=== PATIENT | male | born 1945 | race Caucasian/White ===

== ENCOUNTER → 2020-02-16 12:03 | Outpatient (CLI) | payer MEDICARE, OTHER, SELFPAY ==
[2020-02-16 11:27] VITALS: BMI 30.4
--- NOTE | 2020-02-16 12:35 | RAD_ITS ---
STUDY: X-RAY CHEST REASON FOR EXAM: Male, 74 years old. HEMOPTYSIS IN THE MORNINGS TECHNIQUE: PA and lateral views of the chest. COMPARISON: None. FINDINGS: Alveolar opacity in the lower left lung consistent with left lower lobe pneumonia. Follow-up is recommended to document resolution to exclude a mass. There is no demonstrated pleural abnormality. Normal size heart. Normal mediastinum and zion. Normal visualized pulmonary arteries. Normal visualized aortic arch and descending thoracic aorta. Normal visualized thoracic spine. Normal visualized ribs, clavicles, and shoulders. There is no demonstrated abnormality of the visualized soft tissue structures of the upper abdomen. RAD/Chest PA and Lateral IMPRESSION: Left lower lobe pneumonia. Follow-up is recommended to document resolution. Electronically Signed: Temo Arreaga MD at 13:22 EDT Tel , Service support ,
--- NOTE | 2020-02-16 12:35 | EKG12_ITS ---
Test Reason : Blood Pressure : / mmHG Vent. Rate : 055 BPM Atrial Rate : 055 BPM P-R Int : 134 ms QRS Dur : 106 ms QT Int : 446 ms P-R-T Axes : 015 -06 080 degrees QTc Int : 426 ms Sinus bradycardia with occasional Premature ventricular complexes Left ventricular hypertrophy ST/T Wave abnormality: consider LVH repolarization; myocardial ischemia Abnormal ECG Confirmed by VIOLA YEUNG, TONY ([id number]), make up editor JENSEN CARRILLO ([id number]) on 02/17/2020 1:06:29 PM Referred By: Ronald Shine Confirmed By:TONY ROD MD
[2020-02-16 15:15] LABS: Hematocrit 37.6 % (40-54); Hemoglobin 11.1 g/dL (13.0-16.5); Mean Corp Hgb Conc 29.5 g/dL (32-36); Mean Corpuscular Hgb 26.6 pg (27.0-32.0); Mean Platelet Vol. 9.3 fl (6.2-12.0); Platelet Count 278 K/mm3 (150-450); RBC Distribution Width CV 13.3 % (11.6-14.6); Red Blood Count 4.18 M/mm3 (4.6-6.2); White Blood Count 6.5 K/mm3 (4.4-11.0)
[2020-02-16 15:50] LABS: ALB/GLOB Ratio 0.8 RATIO (0.9-2.4); AST(SGOT) 42 U/L (15-37); Alanine Aminotransfer ALT/SGPT 50 U/L (16-61); Albumin, Serum 3.3 g/dL (3.2-5.0); Alkaline Phosphatase 95 U/L (45-117); Anion Gap 5 (5-15); BUN 25 mg/dL (7-18); BUN/Creat Ratio 16.7 RATIO (10-20); Calcium,Total 8.7 mg/dL (8.5-10.1); Chloride 107 mmol/L (98-107); EST Glomerular Filtration Rate 48 mL/min (>60); Est Glom Filt Rate - Afr Amer 59 mL/min (>60); Globulin 4.3 g/dL (2.2-4.2); Glucose 79 mg/dL (74-106); Potassium 4.4 mmol/L (3.5-5.1); Protein, Total 7.6 g/dL (6.4-8.2); Sodium Level 139 mmol/L (136-145)
== END ==
PROVIDERS: PCP Family Medicine; Referring Provider Family Medicine; Visit Provider Family Medicine
DX: R04.2 Hemoptysis (principal); I10 Essential (primary) hypertension; I49.9 Cardiac arrhythmia, unspecified
CPT/HCPCS: 36415; 71046; 80053; 85027; 93005

== ENCOUNTER 2021-01-06 17:10 | Observation (INO) | payer MEDICARE, OTHER, SELFPAY ==
[2020-02-16 11:27] VITALS: BMI 30.4
[2021-01-06] VITALS (7 sets, daily range): BP systolic 176–225; BP diastolic 52–127; PULSE 62–79; RESP 16–18; TEMP 36.6; O2SAT 96–100; BMI 25.2; BMI 25.6
--- NOTE | 2021-01-06 17:22 | CT_ITS ---
STUDY: CT BRAIN WITHOUT CONTRAST REASON FOR EXAM: Male, 75 years old. trauma RADIATION DOSAGE (If Supplied By Facility): CTDIvol = ( 44.99 ) mGy, DLP = ( 796.11 ) mGycm TECHNIQUE: Transaxial CT imaging of the brain was performed without administration of intravenous contrast material. Individualized dose optimization techniques were used for this CT. COMPARISON: No relevant priors. FINDINGS: Normal soft tissue structures. Normal calvarium. There is moderate cerebral atrophy with widening of the extra-axial spaces and ventricular dilatation. There are areas of decreased attenuation within the white matter tracts of the supratentorial brain, consistent with microvascular disease changes. Remote lacunar infarct left caudate head. 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 Normal brainstem. Normal cerebellum. Intracranial atherosclerosis. There is no intracranial hemorrhage. There are no findings of an acute ischemic infarction. Normal visualized paranasal sinuses. CT/Brain/Head without Contrast IMPRESSION: No acute disease. Incidental findings as above including possible arachnoid cyst posterior fossa. Follow-up MRI may be helpful if clinically warranted. Electronically Signed: Reinaldo Mcclendon MD at 18:31 EDT , Service support ,
--- NOTE | 2021-01-06 17:22 | EKG12_ITS ---
Test Reason : STROKE LIKE Blood Pressure : / mmHG Vent. Rate : 075 BPM Atrial Rate : 075 BPM P-R Int : 140 ms QRS Dur : 110 ms QT Int : 370 ms P-R-T Axes : 006 -06 227 degrees QTc Int : 413 ms Normal sinus rhythm Incomplete right bundle branch block Minimal voltage criteria for LVH, may be normal variant Nonspecific T wave abnormality Abnormal ECG Confirmed by VIOLA YEUNG, TONY ([id number]), avid editor JENSEN CARRILLO ([id number]) on 01/10/2021 9:57:40 AM Referred By: UR Confirmed By:TONY ROD MD
--- NOTE | 2021-01-06 17:24 | EX.ED.GENINJ ---
HPI History of Present Illness Chief Complaint: Head Injury Detail of Chief Complaint: Presents with a fall that occurred prior to arrival in the emergency depart Informant: patient and family Onset/Context/Timing Onset: Today Narrative Narrative: Patient was coming back into the home from his truck when he started losing his balance and falling backwards striking his head on the driveway. Family ran out to check on him and there was no loss of consciousness. Patient has difficulty with balance normally. Patient has some mild dementia. He is not on blood thinners. Family states that patient really does not go to the doctors much. Patient does describe a little bit of a headache. Denies neck pain. Patient also with some swelling to his right elbow and states this was from prior fall but the swelling did not look this way. Patient denies any chest pain or shortness of breath. Patient not anticoagulated. Tetanus Immunization: Unknown Prior similar symptoms: Yes PFSH [facility] Medical History (Updated 01/06/21 @ 19:[address] Hannah Currie DO) Abdominal aortic aneurysm Chronic back pain Hearing loss History of fracture of pelvis History of kidney stones Hypertension Home Medications NK 01/06/21 [History Last Taken Unknown] Allergy/AdvReac Type Severity Reaction Status Date / Time No Known Allergies Allergy Verified 01/06/21 17:16 Family History Brother Cancer Social History (Updated 02/16/20 @ 12:[address] Ronald Shine DO) Smoking Status: Former smoker Tobacco: How many years used: 50 alcohol intake: current alcohol intake frequency: holidays/special occasions only substance use type: does not use what type of physical activity do you participate in: walking ROS ROS ED Constitutional Constitutional ED: Reports systems reviewed and no addt'l complaints, except as documented; Denies body ache(s), change in weight or chills Eyes Eyes: Denies acute decrease in peripheral vision, change in vision, double vision or loss of vision ENT ENT ED: Reports none; Denies ear pain, lip swelling, loss taste/smell, neck pain, otalgia or sore throat Cardiovascular Cardiovascular: Reports none; Denies abdominal pain, chest pain with activity, leg edema, lightheadedness, palpitations, rapid heart rate or syncope Respiratory/Chest Respiratory/Chest: Reports none; Denies change in mental status, dry cough, dyspnea, hemoptysis, shortness of breath at rest or shortness of breath with exertion Gastrointestinal Gastrointestinal: Reports none; Denies abdominal pain, change in stool character, diarrhea, hematemesis, hematochezia, melena, rectal bleeding or vomiting Genitourinary Genitourinary ED: Reports none; Denies abdominal discomfort, anuria, dysuria, genital pain or polyuria Musculoskeletal Musculoskeletal: Reports none and other Details: Right elbow pain and swelling ; Denies arthralgias, back pain, difficulty walking, extremity pain, muscle weakness or myalgias Integumentary Reports none; Denies abscess or rash Neurologic Neurologic: Reports none and headache(s); Denies abnormal gait, confusion, focal weakness, frequent falls, loss of vision, numbness, paresthesias, radicular pain, vertigo or weakness Psychiatric Psychiatric: Reports systems reviewed and no addt'l complaints, except as documented and none; Denies behavioral changes, confusion, difficulty concentrating, hallucinations, suicidal ideation, tactile hallucinations or visual hallucinations Endocrine Endocrinology: Denies none, cold intolerance, excessive sweating, fatigue or heat intolerance Hematologic/Lymphatic Hematologic/Lymphatic: Reports none; Denies anemia, easy bleeding or easy bruising Allergic/Immunologic Allergic/Immunologic ED: Denies as per HPI, none, lip swelling, mouth swelling, throat swelling, tongue swelling or hives EXAM Physical Exam Const Vital Signs: 01/06/21 17:12 01/06/21 17:17 01/06/21 18:07 Temperature 98 F Temperature Source Oral Pulse Rate 79 67 Respiratory Rate 16 16 Respiratory Effort Normal Non-Labored Respiratory Depth Normal Respiratory Pattern Normal Blood Pressure 225/127 H 219/93 H Blood Pressure Mean 159 135 Pulse Ox 97 97 Oxygen Delivery Method Room Air Room Air 01/06/21 19:00 Temperature Temperature Source Pulse Rate 68 Respiratory Rate 18 Respiratory Effort Respiratory Depth Respiratory Pattern Blood Pressure 224/94 H Blood Pressure Mean 137 Pulse Ox 97 Oxygen Delivery Method Room Air Positive well nourished and well developed General Appearance ED: well developed and NAD HEENT Reports TM's clear and moist mucous membranes HEENT Narrative: Patient has a 3 cm star-shaped laceration to the posterior occiput. No bony depressions noted. No C-spine tenderness on palpation. normocephalic and atraumatic; Negative for trauma or tenderness Tympanic Membrane ED: Yes TM's clear Eyes PERRL and EOMs intact bilaterally General Eye ED: Negative for pale conjunctiva or scleral icterus Neck no lymphadenopathy, supple and no JVD Neck Narrative: No C-spine tenderness on palpation. Normal active range of motion is painless. General: Negative for tenderness Chest Wall inspection of chest normal and palpation of chest normal Chest: Negative for tenderness Resp normal respiratory effort and clear to auscultation bilaterally Effort and Inspection: Negative for respiratory distress or pain with movement Auscultation: Negative for rhonchi, wheezes or diminished lung sounds Cardio regular rate, regular rhythm, S1 normal heart sound, S2 normal heart sound and no murmurs Peripheral Pulses: pulses 2+ throughout GI normal to inspection, nondistended, normoactive bowel sounds, soft to palpation, non-tender, non-distended and no masses Back/Spine no CVA tenderness and no thoracic nor lumbar tenderness Extremity normal to inspection Extremity Narrative: Evaluation of the right elbow reveals that he is got soft tissue swelling and firmness over the bursa at the olecranon. No obvious deformity otherwise. Good range of motion flexion extension. Neurovascular intact distally. Does have some mild diffuse tenderness about the elbow. General Extremety ED: Negative for edema General Extremity: Negative for edema Neuro oriented x3, CN's II-XII intact bilaterally, no sensory deficits noted and gait normal Sensorium / Orientation: awake, alert, oriented to person, oriented to place and oriented to time Motor Exam: strength 5/5 throughout and strength abnormal Psych mental status grossly normal Skin no rashes or lesions noted and no wounds PROC Procedures Lacerations Scalp laceration: Length: 1.38 in Depth: Sub Q Shape: Stellate Prep: Sterile Conditions and Shure-Clens Laceration repair: Lidocaine with epi Irrigated (ml): 200 Number of Sutures/Rodger: 6 Suture Information: Ethilon and Simple MDM MDM MDM Narrative Medical decision making narrative: Patient treated with labetalol 20 mg IV and his systolic still in the 230 range. Patient was started on hydralazine 5 mg IV. Case discussed with hospitalist will evaluate patient for admission for hypertensive urgency. Patient is fallen twice today. Lab Data Attestation: I reviewed the patient's lab results. Labs: Laboratory Results - last 24 hr 01/06/21 01/06/21 17:45 17:45 WBC 6.6 RBC 5.04 Hgb 13.8 Hct 43.4 MCV 86.1 MCH 27.4 MCHC 31.8 L RDW Std Deviation 39.9 RDW Coeff of Shakir 12.8 Plt Count 152 MPV 8.9 Immature Gran % (Auto) 0.300 Neut % (Auto) 86.8 H Lymph % (Auto) 9.0 L Williams % (Auto) 3.4 Eos % (Auto) 0.2 Baso % (Auto) 0.3 Absolute Neuts (auto) 5.7 Absolute Lymphs (auto) 0.59 L Nucleated RBC % 0 Differential Comment SCANNED Sodium 142 Potassium 4.2 Chloride 108 H Carbon Dioxide 28.0 Anion Gap 6 BUN 31 H Creatinine 1.67 H Estim Creat Clear Calc 38.86 Est GFR (MDRD) Af Amer 52 L Est GFR (MDRD) Non-Af 43 L BUN/Creatinine Ratio 18.6 Glucose 137 H Calcium 9.0 Troponin I < 0.015 Radiography Diagnostic Testing: Radiology Impression Brain CT 01/06/21 17:22 IMPRESSION: No acute disease. Incidental findings as above including possible arachnoid cyst posterior fossa. Follow-up MRI may be helpful if clinically warranted. Electronically Signed: Reinaldo Mcclendon MD at 18:31 EDT , Service support , Elbow X-Ray 01/06/21 17:27 IMPRESSION: Olecranon bursitis. Intra-articular ossific loose body. Electronically Signed: Reinaldo Mcclendon MD at 19:23 EDT , Service support , EKG Initial EKG: Attestation: I personally reviewed and interpreted this EKG as follows: Comments: Sinus rhythm with a ventricular rate of 75 bpm with incomplete right bundle branch block and nonspecific ST changes. Patient had voltage criteria for LVH. Prior EKG tracings: available for review Prior: Unchanged Discharge Plan Triage Chief Complaint: Head Injury ED Provider: Hannah Currie Dx/Rx/DC Orders Clinical Impression: Falls, Hypertensive urgency Prescriptions: No Action NK RF: 0 Primary Care Provider: Ronald Shine Referrals: Brown,Ronald R, DO [Primary Care Provider] - Disposition Disposition: Acute Care Hospital [facility]
--- NOTE | 2021-01-06 17:27 | RAD_ITS ---
STUDY: X-RAY - RIGHT ELBOW REASON FOR EXAM: Male, 75 years old. injury TECHNIQUE: 3 view(s) of the elbow. COMPARISON: None. FINDINGS: Normal visualized humerus, radius and ulna. Normal radiocapitellar and ulnotrochlear articulations. Spur of the olecranon and soft tissue swelling olecranon bursa. The soft tissue structures are unremarkable. Possible intra-articular ossific density. RAD/Elbow min 3 Views IMPRESSION: Olecranon bursitis. Intra-articular ossific loose body. Electronically Signed: Reinaldo Mcclendon MD at 19:23 EDT , Service support ,
[2021-01-06] MEDS: Diphth,Pertuss(Acell),Tet Vac 0.5 ML Vial IM (17:49)
[2021-01-06] MEDS: Labetalol (Prefilled) 20 MG/4 ML IV (17:49)
[2021-01-06] MEDS: 0.9% Normal Saline 1,000 ML 150 ML IV (17:54)
[2021-01-06 18:00] LABS: Absolute Lymphocyte Count 0.59 X10^3/uL (0.83-4.51); Absolute Neutrophil Count 5.7 X10^3/uL (2.0-7.7); Basophil# 0.02 X10^3/uL; Basophil% 0.3 % (0-1); Eosinophil# 0.01 X10^3/uL; Eosinophils% 0.2 % (0-5); Hematocrit 43.4 % (40-54); Hemoglobin 13.8 g/dL (13.0-16.5); Lymphocyte # 0.59 X10^3/ul (0.83-4.51); Mean Corp Hgb Conc 31.8 g/dL (32-36); Mean Corpuscular Hgb 27.4 pg (27.0-32.0); Mean Corpuscular Volume 86.1 fL (80-94); Mean Platelet Vol. 8.9 fl (6.2-12.0); Monocyte# 0.22 X10^3/uL; Monocyte% 3.4 % (0-10); NRBC Flagged by Analyzer 0 % (0-5); Neutrophil # 5.69 X10^3/uL (2.7-7.7); Neutrophil % 86.8 % (47-70); POSITIVE DIFFERENTIAL YES; Platelet Count 152 K/mm3 (150-450); RBC Distribution Width CV 12.8 % (11.6-14.6); RBC Distribution Width SD 39.9 fl (35.1-43.9); Red Blood Count 5.04 M/mm3 (4.6-6.2); White Blood Count 6.6 K/mm3 (4.4-11.0)
[2021-01-06 18:04] LABS: Differential Indicated SCAN CRITERIA MET
[2021-01-06 18:16] LABS: Anion Gap 6 (5-15); BUN 31 mg/dL (7-18); BUN/Creat Ratio 18.6 RATIO (10-20); Chloride 108 mmol/L (98-107); Creatinine, Serum 1.67 mg/dL (0.70-1.30); EST Glomerular Filtration Rate 43 mL/min (>60); Est Glom Filt Rate - Afr Amer 52 mL/min (>60); Estimated Creatinine Clearance 38.86 ml/min; Glucose 137 mg/dL (74-106); Potassium 4.2 mmol/L (3.5-5.1); Sodium Level 142 mmol/L (136-145)
[2021-01-06 18:29] LABS: Differential Comment SCANNED
[2021-01-06] MEDS: Lidocaine 1% /Epi 1:100 (20ml) 20 ML Vial INFILT (19:19)
[2021-01-06] MEDS: hydrALAZINE 20 MG/ML Vial 5 MG IV (19:46)
--- NOTE | 2021-01-06 20:43 | ED.RN ---
PT REPORTS HE HAS NOT BEEN ON ANY MEDICATIONS FOR A COUPLE YEARS. REPORTS WHEN HE WAS ON BP MEDS HE DID NOT LIKE THE SIDE EFFECTS.
--- NOTE | 2021-01-06 22:40 | HP.PCM.HOS_ITS ---
HPI - General General Date of Admission: 01/06/21 Date of Service: 01/06/21 Chief Complaint: elevated blood pressure, weakness HPI Narrative LAURENT BRANDON, is a 75 M who presents to the emergency room at [facility] after sustaining a fall at home and striking his head on his driveway. There did not appear to be any loss of consciousness, patient has difficulty with walking due to spinal stenosis according to his daughter who was present at the time of my examination. Patient is supposed to be on hypertension medication but he has not taken any in 2 years, he states that he has side effects from blood pressure medications and he does not take them. There appears to be some cognitive impairment on examination, patient's daughter states he has memory issues at times. Patient is able to answer simple question s however. Patient is was noted to be severely hypertensive in the emergency room with systolic blood pressure of 225. A scalp laceration was closed. MRI showed no acute disease. Labs were remarkable for creatinine of 1.67, remaining labs were unremarkable. Patient was given labetalol IV and hydralazine but his blood pressure remained elevated. Patient will be placed in observation status on PCU, blood pressure medication will be administered and he will be seen by PT and OT. [facility] Medical History (Updated 01/06/21 @ 19:[address] Hannah Currie DO) Abdominal aortic aneurysm Chronic back pain Former smoker Hearing loss History of fracture of pelvis History of kidney stones Hypertension Home Medications NK 01/06/21 [History Last Taken Unknown] Allergy/AdvReac Type Severity Reaction Status Date / Time No Known Allergies Allergy Verified 01/06/21 17:16 Family History Brother Cancer Social History (Updated 02/16/20 @ 12:[address] Ronald Shine DO) Smoking Status: Former smoker Tobacco: How many years used: 50 alcohol intake: current alcohol intake frequency: holidays/special occasions only substance use type: does not use what type of physical activity do you participate in: walking ROS Constitutional Constitutional: Denies anorexia, change in weight, fever(s), night sweats or weakness Eyes Eyes: Denies blurry vision, change in vision, discharge from eye(s) or eye pain Cardiovascular Cardiovascular: Denies chest pain, claudication, edema or palpitations Respiratory/Chest Respiratory/Chest: Denies cough, hemoptysis, shortness of breath at rest or s hortness of breath with exertion Gastrointestinal Gastrointestinal: Denies abdominal pain, constipation, diarrhea, hematemesis, hematochezia, melena, nausea or vomiting Genitourinary Genitourinary: Denies dysuria, hematuria, urinary frequency, urinary hesitancy, urinary incontinence or urinary urgency Musculoskeletal Musculoskeletal: Denies back pain, joint pain, joint stiffness, joint swelling, myalgias or neck pain Neurologic Neurologic: Denies abnormal gait, abnormal speech, dizziness, focal weakness, headache(s), loss of vision, numbness, other visual disturbances, paresthesias, syncope or tingling Psychiatric Psychiatric: Denies anxiety, cognitive impairment, depression, irritability, mood swings or suicidal ideation Endocrine Endocrinology: Denies change in body appearance, cold intolerance, excessive sweating, heat intolerance, polydipsia or polyuria Hematologic/Lymphatic Hematologic/Lymphatic: Denies none, anemia, easy bleeding, easy bruising or lymphadenopathy Allergic/Immunologic Allergic/Immunologic: Denies rhinitis, urticaria, eczemia or asthma Vital Signs Vital Signs Vital Signs: 01/06/21 17:12 01/06/21 17:17 01/06/21 18:07 Temperature 98 F Temperature Source Oral Pulse Rate 79 67 Pulse Strength Respiratory Rate 16 16 Respiratory Effort Normal Non-Labored Respiratory Depth Normal Respiratory Pattern Normal Blood Pressure 225/127 H 219/93 H Blood Pressure Mean 159 135 Blood Pressure Source Blood Pressure Position Blood Pressure Location Pulse Ox 97 97 Oxygen Delivery Method Room Air Room Air 01/06/21 19:00 01/06/21 19:48 01/06/21 20:51 Temperature 97.9 F 97.8 F Temperature Source Temporal Oral Pulse Rate 68 68 78 Pulse Strength Respiratory Rate 18 18 18 Respiratory Effort Respiratory Depth Respiratory Pattern Blood Pressure 224/94 H 224/94 H 176/87 H Blood Pressure Mean 137 137 116 Blood Pressure Source Monitor Blood Pressure Position Semi-Fowlers Blood Pressure Location Right Arm Pulse Ox 97 97 100 Oxygen Delivery Method Room Air Nasal Cannula Room Air 01/06/21 22:22 01/06/21 22:29 Temperature 97.9 F Temperature Source Oral Pulse Rate 62 Pulse Strength Normal (2+) Respiratory Rate 17 Respiratory Effort Respiratory Depth Respiratory Pattern Blood Pressure 176/52 H Blood Pressure Mean 93 Blood Pressure Source Monitor Blood Pressure Position Supine Blood Pressure Location Right Arm Pulse Ox 96 Oxygen Delivery Method Room Air Weight Weight: 76.4 kg Body Mass Index (BMI) 25.6 Physical Exam Const alert, oriented x3, no apparent distress and healthy appearing Constitutional Narrative: Patient exhibits mild cognitive impairment General Appearance: cooperative, well kempt and well developed Orientation / Consciousness: awake, oriented to person, oriented to place and oriented to time HEENT normocephalic, hearing grossly normal bilaterally and moist oral mucous membranes HEENT Narrative: There is a laceration of the back of the patient's scalp that is closed with sutures Eyes PERRL, EOMs intact bilaterally and conjunctivae normal Neck nuchal rigidity, supple, no JVD, thyroid normal and no carotid bruits General: trachea midline Resp normal respiratory effort and clear to auscultation bilaterally Auscultation: Negative for rales, rhonchi or wheezes Cardio regular rate, regular rhythm, S1 normal heart sound, S2 normal heart sound, no murmurs, no rub, no gallops and no clicks GI normal to inspection, nondistended, normoactive bowel sounds, soft to palpation, non-tender and non-distended Extremity no clubbing, cyanosis or edema Skin General Skin Exam: no breakdown Neuro oriented x3, CN's II-XII intact bilaterally, no focal motor deficits and no sensory deficits noted Neuro Narrative: Patient is a poor informant Sensorium / Orientation: awake and alert Speech: speech normal Psych thought process normal Psych Narrative: Patient affect is flat Results Lab / Micro Data Result Diagrams: 01/06/21 17:45 01/06/21 17:45 Labs: Laboratory Results - last 24 hr 01/06/21 01/06/21 17:45 17:45 WBC 6.6 RBC 5.04 Hgb 13.8 Hct 43.4 MCV 86.1 MCH 27.4 MCHC 31.8 L RDW Std Deviation 39.9 RDW Coeff of Shakir 12.8 Plt Count 152 MPV 8.9 Immature Gran % (Auto) 0.300 Neut % (Auto) 86.8 H Lymph % (Auto) 9.0 L [place] % (Auto) 3.4 Eos % (Auto) 0.2 Baso % (Auto) 0.3 Absolute Neuts (auto) 5.7 Absolute Lymphs (auto) 0.59 L Nucleated RBC % 0 Differential Comment SCANNED Sodium 142 Potassium 4.2 Chloride 108 H Carbon Dioxide 28.0 Anion Gap 6 BUN 31 H Creatinine 1.67 H Estim Creat Clear Calc 38.86 Est GFR (MDRD) Af Amer 52 L Est GFR (MDRD) Non-Af 43 L BUN/Creatinine Ratio 18.6 Glucose 137 H Calcium 9.0 Troponin I < 0.[address] 01/06/21 17:22 IMPRESSION: No acute disease. Incidental findings as above including possible arachnoid cyst posterior fossa. Follow-up MRI may be helpful if clinically warranted. Electronically Signed: Reinaldo Mcclendon MD at 18:31 EDT , Service support , Elbow X-Ray 01/06/21 17:27 IMPRESSION: Olecranon bursitis. Intra-articular ossific loose body. Electronically Signed: Reinaldo Mcclendon MD at 19:23 EDT , Service support , Assessment & Plan Assessment/Plan (1) Hypertensive urgency: PLAN: 1. Hypertensive urgency-patient will be placed in observation status on PCU, I have placed him on several medications for blood pressure, these will need to be continued as an outpatient I have talked to him and his daughter about this. #2 questionable cognitive impairment-patient may have some early dementia, this is not clear #3 chronic kidney disease stage IIIb secondary to hypertension #4 scalp laceration secondary to fall #5 spinal stenosis-patient will be seen by PT and OT Charges/Coding Visit Charges OBSV E&M: [id number] Initial observation care L3
[2021-01-06] MEDS: amLODIPine 10 MG Tablet PO (22:45)
[2021-01-06] MEDS: hydroCHLOROthiazide 12.5mg 12.5 MG PO (22:45)
[2021-01-06] MEDS: Lisinopril 40 MG Tablet PO (22:46)
[2021-01-07] MEDS: 0.9% Normal Saline 1,000 ML 150 ML IV ×2 (00:46→07:05)
[2021-01-07 03:00] VITALS: PULSE 61
[2021-01-07 04:20] VITALS: BP 140/78; PULSE 70; RESP 17; TEMP 36.6; O2SAT 98
[2021-01-07 06:09] LABS: Anion Gap 7 (5-15); BUN 21 mg/dL (7-18); BUN/Creat Ratio 15.8 RATIO (10-20); Calcium,Total 8.6 mg/dL (8.5-10.1); Chloride 111 mmol/L (98-107); Creatinine, Serum 1.33 mg/dL (0.70-1.30); EST Glomerular Filtration Rate 55 mL/min (>60); Est Glom Filt Rate - Afr Amer 67 mL/min (>60); Estimated Creatinine Clearance 45.71 ml/min; Glucose 92 mg/dL (74-106); Potassium 3.3 mmol/L (3.5-5.1); Sodium Level 143 mmol/L (136-145)
[2021-01-07 07:00] VITALS: PULSE 71
[2021-01-07] MEDS: Potassium Chloride Oral Tablet 20 MEQ 40 MEQ PO (08:10)
[2021-01-07] MEDS: hydroCHLOROthiazide 12.5mg 12.5 MG PO (08:13)
[2021-01-07] MEDS: amLODIPine 10 MG Tablet PO (08:13)
[2021-01-07] MEDS: Lisinopril 40 MG Tablet PO (08:13)
[2021-01-07 08:14] VITALS: BP 155/82; PULSE 59; RESP 18; TEMP 36.1; O2SAT 98
--- NOTE | 2021-01-07 11:54 | PN.HOSP_ITS ---
Subjective Subjective Patient seen and examined. He was admitted on account of a mechanical fall. Patient fell at home and hit his head on his driveway. Patient is on blood pressure medication but not taking his medications in about 2 years because of perceived side effects. Patient has also been noted to have some cognitive impairment. He sustained a scalp laceration which was sutured. CT of the brain done was negative for any acute intracranial pathology. Was admitted to be managed for debility due to mechanical fall with scalp laceration as well as poorly controlled hypertension. Patient seen and examined today. He had no complaints. Patient did appear to be a bit confused though he was able to answer questions during review of systems. He is asking to go home. Review of systems otherwise negative. Labs and vitals reviewed. Home medication reviewed and reconciled. Objective Data Objective Data Vital Signs: Vital Signs Temp Pulse Resp BP Pulse Ox 97.0 F L 59 L 18 155/82 H 98 01/07/21 08:14 01/07/21 08:14 01/07/21 08:14 01/07/21 08:14 01/07/21 08:14 Oxygen Delivery Method Room Air Weight: 168 lb 6.931 oz Body Mass Index (BMI) 25.6 Intake & Output: Intake and Output for Last 24 Hours 01/05/21 01/06/21 01/07/21 23:59 23:59 23:59 Intake Total 1012.5 / 1012.5 1085.0 / 1085.0 Output Total 725 / 725 Balance 1012.5 / 1012.5 360.0 / 360.0 Lab / Micro Data Result Diagrams: 01/06/21 17:45 01/07/21 05:35 Labs: Laboratory Results - last 24 hr 01/06/21 01/06/21 01/07/21 17:45 17:45 05:35 WBC 6.6 RBC 5.04 Hgb 13.8 Hct 43.4 MCV 86.1 MCH 27.4 MCHC 31.8 L RDW Std Deviation 39.9 RDW Coeff of Shakir 12.8 Plt Count 152 MPV 8.9 Immature Gran % (Auto) 0.300 Neut % (Auto) 86.8 H Lymph % (Auto) 9.0 L Hays % (Auto) 3.4 Eos % (Auto) 0.2 Baso % (Auto) 0.3 Absolute Neuts (auto) 5.7 Absolute Lymphs (auto) 0.59 L Nucleated RBC % 0 Differential Comment SCANNED Sodium 142 143 Potassium 4.2 3.3 L Chloride 108 H 111 H Carbon Dioxide 28.0 25.0 Anion Gap 6 7 BUN 31 H 21 H Creatinine 1.67 H 1.33 H Estim Creat Clear Calc 38.86 45.71 Est GFR (MDRD) Af Amer 52 L 67 Est GFR (MDRD) Non-Af 43 L 55 L BUN/Creatinine Ratio 18.6 15.8 Glucose 137 H 92 Calcium 9.0 8.6 Troponin I < 0.015 Radiography Diagnostic Testing: Radiology Impression Brain CT 01/06/21 17:22 IMPRESSION: No acute disease. Incidental findings as above including possible arachnoid cyst posterior fossa. Follow-up MRI may be helpful if clinically warranted. Electronically Signed: Reinaldo Mcclendon MD at 18:31 EDT , Service support , Elbow X-Ray 01/06/21 17:27 IMPRESSION: Olecranon bursitis. Intra-articular ossific loose body. Electronically Signed: Reinaldo Mcclendon MD at 19:23 EDT , Service support , Physical Exam Const alert, no apparent distress and healthy appearing General Appearance: cooperative, well kempt and well developed Orientation / Consciousness: awake, oriented to person, oriented to place, charity ented to time and confused Exam Limitations: no limitations HEENT normocephalic, hearing grossly normal bilaterally and moist oral mucous membranes Eyes PERRL, EOMs intact bilaterally and conjunctivae normal Neck nuchal rigidity, supple, no JVD, thyroid normal and no carotid bruits General: trachea midline Resp normal respiratory effort and clear to auscultation bilaterally Auscultation: Negative for rales, rhonchi or wheezes Cardio regular rate, regular rhythm, S1 normal heart sound, S2 normal heart sound, no murmurs, no rub, no gallops and no clicks GI normal to inspection, nondistended, normoactive bowel sounds, soft to palpation, non-tender and non-distended Extremity normal to inspection, full ROM and no clubbing, cyanosis or edema Peripheral Pulses: Yes pulses 2+ throughout Skin no rashes or lesions noted General Skin Exam: no breakdown Neuro CN's II-XII intact bilaterally, no focal motor deficits and no sensory deficits noted Sensorium / Orientation: awake and alert Speech: speech normal Psych thought process normal Psych Narrative: cnfused. Assessment & Plan Assessment/Plan (1) Hypertensive urgency: PLAN: #Hypertensive urgency * Patient's blood pressure was markedly elevated but has trended down to 155/82. * On amlodipine, hydrochlorothiazide and lisinopril. * Patient counseled on compliance. * #Debility due to mechanical fall with scalp laceration * scalp laceration was sutured * stable. * #CKD stage 3b: stable.Follow up with PCP on outpatient basis # DVT prophylaxis: SCDs Charges/Coding Visit Charges Inpatient E&M: 71949 Subs Hosp L2
--- NOTE | 2021-01-07 13:06 | CASEMGMT ---
Addendum entered by Leana Pimentel 01/07/21 13:35: D/C summary faxed to [facility]. Renee HANSEN CM Original Note: Therapy is recommending [facility] therapy for pt at discharge. This RN CM to room and 2 daughters are present. Pt does live with daughter/son-in-law and they are agreeable for [facility] PT/OT and after provided list of local [facility] companies. Daughter states they would like [facility]. Referral faxed to [facility] and pt/daughter aware that they will not accept/deny until 01/09, voice understanding. Pt/daughters voice no further questions/concerns/needs. CM to follow on Saturday for [facility] acceptance. Renee HANSEN CM
--- NOTE | 2021-01-07 13:11 | DS.PCM_ITS ---
Providers Date of Admission: 01/06/21 Primary Care Physician: Dr. Ronald Shine, DO Reason For Visit: UNCONTROLLED HYPERTENSION, DEBILITY Diagnosis Discharge Diagnosis (1) Hypertensive urgency: Status: Acute Code(s): I16.0 - Hypertensive urgency Medications at Discharge Home Medications NK 01/06/21 amlodipine 10 mg PO DAILY #30 tab 01/07/21 hydrochlorothiazide 12.5 mg PO DAILY #30 cap 01/07/21 lisinopril 40 mg PO DAILY #30 tab 01/07/21 Hospital Course Operations None Procedures None Summary of Care Provided Minutes Spent on Discharge: 45 Hospital Course: Patient is a 75-year-old male with past medical history of hypertension and spinal stenosis. He was admitted through the ED on 01/06/2021 with a complaint of mechanical fall. He struck his head on the driveway when he fell. He did not have any loss of consciousness but had been having difficulty ambulating due to recently diagnosed spinal stenosis. Patient was possibly on his blood pressure medications but had not taken any in about 2 years because he said he got adverse side effects from them and so did not like taking them. Daughter also stated that he appeared patient had been having some memory issues recently. In the ED he was markedly hypertensive with systolic blood pressure of 225. He also had a scalp laceration from mechanical fall which was sutured. He was admitted to be managed for debility due to mechanical fall and hypertensive urgency. He was started on oral blood pressure medications after being given IV labetalol and hydralazine. No acute intracranial pathology. Patient's blood pressure improved. Daughter asked to take him home on 01/07/2021. Discussion with daughter, she had moved patient to live with her few weeks ago as he was getting more unsteady on his feet. She also acknowledged that he might have some memory impairments. Patient had worked with physical therapy during this admission and was unsteady on his feet. Daughter was unable to home PT OT. Patient was discharged home on 01/07/2021 with home PT OT. He was given prescription for amlodipine and hydrochlorothiazide as well as lisinopril. Blood pressure was down to 155/82 at time of discharge. He is to follow-up with his primary care doctor within 1 to 2 weeks for blood pressure medications to be adjusted as needed. Patient was seen and examined prior to discharge. He was alert and mildly confused but had no complaints. Review of systems otherwise negative. Labs and vitals reviewed. Home medication reviewed and reconciled. For physical examination findings, please refer to hospitalist progress notes dated 01/07/2021. ABG / Lab / Microbiology Data Result Diagrams: 01/06/21 17:45 01/07/21 05:35 Laboratory: Laboratory Results - last 24 hr 01/06/21 01/06/21 01/07/21 17:45 17:45 05:35 WBC 6.6 RBC 5.04 Hgb 13.8 Hct 43.4 MCV 86.1 MCH 27.4 MCHC 31.8 L RDW Std Deviation 39.9 RDW Coeff of Shakir 12.8 Plt Count 152 MPV 8.9 Immature Gran % (Auto) 0.300 Neut % (Auto) 86.8 H Lymph % (Auto) 9.0 L Gilchrist % (Auto) 3.4 Eos % (Auto) 0.2 Baso % (Auto) 0.3 Absolute Neuts (auto) 5.7 Absolute Lymphs (auto) 0.59 L Nucleated RBC % 0 Differential Comment SCANNED Sodium 142 143 Potassium 4.2 3.3 L Chloride 108 H 111 H Carbon Dioxide 28.0 25.0 Anion Gap 6 7 BUN 31 H 21 H Creatinine 1.67 H 1.33 H Estim Creat Clear Calc 38.86 45.71 Est GFR (MDRD) Af Amer 52 L 67 Est GFR (MDRD) Non-Af 43 L 55 L BUN/Creatinine Ratio 18.6 15.8 Glucose 137 H 92 Calcium 9.0 8.6 Troponin I < 0.015 Radiography Diagnostic Testing: Radiology Impression Brain CT 01/06/21 17:22 IMPRESSION: No acute disease. Incidental findings as above including possible arachnoid cyst posterior fossa. Follow-up MRI may be helpful if clinically warranted. Electronically Signed: Reinaldo Mcclendon MD at 18:31 EDT , Service support , Elbow X-Ray 01/06/21 17:27 IMPRESSION: Olecranon bursitis. Intra-articular ossific loose body. Electronically Signed: Reinaldo Mcclendon MD at 19:23 EDT , Service support , D/C Instructions Discharge Diet: 2000 mg Sodium Diet Discharge Activity: Return to Normal Activity Weight Bearing Status: Weight bearing as tolerated Call your doctor if you observe: Fever of 101 or Higher, Shortness of breath, Dizziness, Swelling in the ankles, Chest pain, Increased palpitations (irregular heartbeat) and Calf discomfort Meaningful Use Info Meaningful Use Diagnoses (Choose all that apply): None applicable Discharge Plan Admission Admit Date/Time: 01/06/21 21:06 Primary Reason for Your Visit: mechanical fall, hypertensive urgency Attending Provider: Paris Blake Primary Care Provider: Ronald Shine Instructions Patient Instructions: Controlling High Blood Pressure, ED Fall Dizziness Weakn Balance Discharge Orders/Prescriptions Prescriptions: New amlodipine 10 mg Tablet 10 mg PO DAILY Qty: 30 RF: 1 hydrochlorothiazide 12.5 mg Capsule 12.5 mg PO DAILY Qty: 30 RF: 1 lisinopril 40 mg Tablet 40 mg PO DAILY Qty: 30 RF: 1 No Action NK RF: 0 Referrals / Follow Up: Ronald Shine DO [Primary Care Provider] - Within 2 Weeks Disposition Disposition (needs filled in before D/C Order can be placed): Home Health Service Charges/Coding Visit Charges OBSV E&M: 16897 Observation care discharge
[2021-01-07 13:54] VITALS: BP 151/69; PULSE 50; RESP 18; TEMP 36.7; O2SAT 93
--- NOTE | 2021-01-09 09:38 | CASEMGMT ---
TRYONE VAUGHN Follow-up: Call placed to [facility] in [place]. Referral was not received. Re-faxed referral packet to [phone]. Nir Lu RN CM
--- NOTE | 2021-01-09 11:38 | CASEMGMT ---
TYRONE VAUGHN Follow-up: Call placed to [facility]. Referral received and after review noted [facility] is not in-network with pt's [facility] supplemental insurance. Reviewed [facility] website which notes [facility], [facility], [facility], [facility], and [facility] to be in-network providers. Call placed to pt regarding alternate C choice. Voicemail received and message left requesting a return call. Nir Lu RN CM
--- NOTE | 2021-01-09 14:14 | CASEMGMT ---
TYRONE VAUGHN Follow-up: No return call received from patient. Noted TYRONE VAUGHN notation that pt would be staying with his daughter. Call placed to Rachel Mukherjee who confirms the same and states her second choice is [facility]. Call placed to Laura at [facility]. Laura confirmed they are in-network, have availability and are able to accept pt for home PT/OT. Instructed Laura to use pt's daughter's cell phone as the primary contact number. Laura expressed understanding and denied any further needs. Nir Lu RN CM
== END 2021-01-07 13:20 | disposition home health service (06) ==
LOC: ED 19:50 → PCU 21:53
PROVIDERS: Admitting Provider Internal Medicine; Emergency Provider Emergency Medicine; PCP Family Medicine; Visit Provider Student in an Organized Health Care Education/Training Program
DX: I16.0 Hypertensive urgency (principal); Z23 Encounter for immunization; M79.89 Other specified soft tissue disorders; F03.90 Unspecified dementia, unspecified severity, without behavioral disturbance, psychotic disturbance, mood disturbance, and anxiety; S01.01XA Laceration without foreign body of scalp, initial encounter; W01.0XXA Fall on same level from slipping, tripping and stumbling without subsequent striking against object, initial encounter; Y93.89 Activity, other specified; Y92.009 Unspecified place in unspecified non-institutional (private) residence as the place of occurrence of the external cause; I12.9 Hypertensive chronic kidney disease with stage 1 through stage 4 chronic kidney disease, or unspecified chronic kidney disease; N18.32 Chronic kidney disease, stage 3b; R41.89 Other symptoms and signs involving cognitive functions and awareness; M48.00 Spinal stenosis, site unspecified; Z87.891 Personal history of nicotine dependence
CPT/HCPCS: 12002; 36415; 70450; 73080; 80048; 84484; 85025; 90471; 90715; 93005; 96361; 96374; 96375; 97162; 97166; 99218; 99285; J7030; A4216; G0378

== ENCOUNTER → 2021-03-07 09:59 | Outpatient (CLI) | payer MEDICARE, OTHER, SELFPAY ==
[2021-03-07 09:39] VITALS: BMI 25.6
[2021-03-07 12:43] LABS: ALB/GLOB Ratio 1.1 RATIO (0.9-2.4); AST(SGOT) 21 U/L (15-37); Alanine Aminotransfer ALT/SGPT 21 U/L (16-61); Albumin, Serum 3.9 g/dL (3.2-5.0); Alkaline Phosphatase 85 U/L (45-117); Anion Gap 6 (5-15); BUN 36 mg/dL (7-18); BUN/Creat Ratio 20.6 RATIO (10-20); Calcium,Total 9.3 mg/dL (8.5-10.1); Chloride 108 mmol/L (98-107); Creatinine, Serum 1.75 mg/dL (0.70-1.30); EST Glomerular Filtration Rate 40 mL/min (>60); Est Glom Filt Rate - Afr Amer 49 mL/min (>60); Globulin 3.6 g/dL (2.2-4.2); Glucose 118 mg/dL (74-106); Potassium 4.3 mmol/L (3.5-5.1); Protein, Total 7.5 g/dL (6.4-8.2); Sodium Level 141 mmol/L (136-145)
== END ==
PROVIDERS: PCP Family Medicine; Referring Provider Nurse Practitioner Family; Visit Provider Nurse Practitioner Family
DX: I10 Essential (primary) hypertension (principal)
CPT/HCPCS: 36415; 80053

== ENCOUNTER 2021-04-18 17:29 | Emergency (ER) | payer MEDICARE, OTHER, SELFPAY ==
[2021-04-18 17:30] VITALS: BP 156/71; PULSE 66; RESP 17; TEMP 36.8; O2SAT 98; BMI 26.1
[2021-04-18 17:34] VITALS: BP 156/71; PULSE 66; RESP 17; TEMP 36.8; O2SAT 98
--- NOTE | 2021-04-18 17:43 | EKG12_ITS ---
Test Reason : SYNCOPE Blood Pressure : / mmHG Vent. Rate : 072 BPM Atrial Rate : 072 BPM P-R Int : 148 ms QRS Dur : 102 ms QT Int : 378 ms P-R-T Axes : 001 -04 118 degrees QTc Int : 413 ms Normal sinus rhythm T wave abnormality, consider lateral ischemia Abnormal ECG Confirmed by VIOLA YEUNG, TONY ([id number]), film editor JENSEN CARRILLO ([id number]) on 04/19/2021 1:25:17 PM Referred By: RU Confirmed By:TONY ROD MD
--- NOTE | 2021-04-18 17:43 | CT_ITS ---
We are attempting to reach an attending provider to discuss findings. An addendum with communication details will be sent when the communication is complete. STUDY: CT BRAIN WITHOUT CONTRAST REASON FOR EXAM: Male, 76 years old. syncope, head injury RADIATION DOSAGE (If Supplied By Facility): CTDIvol = ( 44.99 ) mGy, DLP = ( 796.11 ) mGycm TECHNIQUE: Transaxial CT imaging of the brain was performed without administration of intravenous contrast material. Individualized dose optimization techniques were used for this CT. COMPARISON: 11/22/2020. FINDINGS: Normal soft tissue structures. Normal calvarium. Calcification of cavernous carotids. Mild atrophy and moderate periventricular white matter ischemic change.. 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 Normal brainstem. Normal cerebellum. There is a mixed subacute/chronic left subdural hematoma measuring approximately 9 to 10 mm maximum thickness effacing the cortical sulci but without appreciable mass effect upon the lateral ventricles or midline shift.. There are no findings of an acute ischemic infarction. There is mild mucosal thickening of the maxillary sinuses bilaterally and moderate mucosal thickening of the ethmoid air cells. The subdural hematoma has increased in size slightly since prior exam CT/Brain/Head without Contrast IMPRESSION: Moderate-sized mixed subacute/chronic subdural hematoma in the left cerebral hemisphere without midline shift. Old lacunar infarct in left caudate nucleus Electronically Signed: Rudi Baxter MD at 19:04 EDT , Service support ,
--- NOTE | 2021-04-18 17:45 | EDS_ITS ---
HPI History of Present Illness Chief Complaint: Syncope Detail of Chief Complaint: Syncopal episode Informant: patient Narrative Narrative: Patient presents to the emergency department via EMS from home with a syncopal episode that occurred this afternoon. Patient unable to give me any history about what happened prior to his syncopal episode. Patient is a poor historian and does have some history of dementia. Patient has history of h ypertension. Patient apparently was incontinent of stool per EMS. He does not have a seizure history. Patient denies injury but does have a mild headache. Patient denies neck pain. He denies chest pain or abdominal pain. Patient tells me that he has passed out before. Stated that there are family members in the home that are positive for Covid. Patient denies Covid symptoms. Prior similar symptoms: Yes PFSH PFS Medical History (Updated 04/18/21 @ 19:[address] Hannah Currie, ) Abdominal aortic aneurysm Chronic back pain Former smoker Hearing loss History of fracture of pelvis History of kidney stones HTN (hypertension) Hypertension Home Medications amlodipine 10 mg tablet 10 mg PO DAILY #90 tab 03/07/21 [Rx Last Taken Unknown] disability placard #1 ea 03/07/21 [Rx Last Taken Unknown] hydrochlorothiazide 12.5 mg capsule 12.5 mg PO DAILY #90 cap 03/07/21 [Rx Last Taken Unknown] lisinopril 40 mg tablet 40 mg PO DAILY #90 tab 03/07/21 [Rx Last Taken Unknown] Allergy/AdvReac Type Severity Reaction Status Date / Time No Known Allergies Allergy Verified 03/07/21 09:36 Family History Brother Cancer Social History Smoking Status: Former smoker Tobacco: How many years used: 50 alcohol intake: current alcohol intake frequency: holidays/special occasions only substance use type: does not use what type of physical activity do you participate in: walking ROS ROS ED ROS Narrative Syncopal episode Constitutional Constitutional ED: Reports systems reviewed and no addt'l complaints, except as documented; Denies body ache(s), change in weight or chills Eyes Eyes: Denies acute decrease in peripheral vision, change in vision, double vision or loss of vision ENT ENT ED: Reports none; Denies ear pain, lip swelling, loss taste/smell, neck pain, otalgia or sore throat Cardiovascular Cardiovascular: Reports none; Denies abdominal pain, chest pain with activity, leg edema, lightheadedness, palpitations, rapid heart rate or syncope Respiratory/Chest Respiratory/Chest: Reports none; Denies change in mental status, dry cough, dyspnea, hemoptysis, shortness of breath at rest or shortness of breath with exertion Gastrointestinal Gastrointestinal: Reports none and other Details: Stool incontinence ; Denies abdominal pain, change in stool character, diarrhea, hematemesis, hematochezia, melena, rectal bleeding or vomiting Genitourinary Genitourinary ED: Reports none; Denies abdominal discomfort, anuria, dysuria, ge nital pain or polyuria Musculoskeletal Musculoskeletal: Reports none; Denies arthralgias, back pain, difficulty walking, extremity pain, muscle weakness or myalgias Integumentary Reports none; Denies abscess or rash Neurologic Neurologic: Reports none and headache(s); Denies abnormal gait, confusion, focal weakness, frequent falls, loss of vision, numbness, paresthesias, radicular pain, vertigo or weakness Psychiatric Psychiatric: Reports systems reviewed and no addt'l complaints, except as documented and none; Denies behavioral changes, confusion, difficulty concentrating, hallucinations, suicidal ideation, tactile hallucinations or visual hallucinations Endocrine Endocrinology: Denies none, cold intolerance, excessive sweating, fatigue or heat intolerance Hematologic/Lymphatic Hematologic/Lymphatic: Reports none; Denies anemia, easy bleeding or easy br uising Allergic/Immunologic Allergic/Immunologic ED: Denies as per HPI, none, lip swelling, mouth swelling, throat swelling, tongue swelling or hives EXAM Physical Exam Const Vital Signs: 04/18/21 17:30 04/18/21 17:34 04/18/21 18:55 Temperature 98.2 F 98.2 F 98.1 F Temperature Source Oral Oral Oral Pulse Rate 66 66 81 Respiratory Rate 17 17 18 Respiratory Effort Normal Non-Labored Respiratory Pattern Normal Blood Pressure 156/71 H 156/71 H 184/87 H Blood Pressure Mean 99 99 119 Pulse Ox 98 98 96 Oxygen Delivery Method Room Air Room Air Room Air 04/18/21 19:06 Temperature 98.1 F Temperature Source Oral Pulse Rate 81 Respiratory Rate 18 Respiratory Effort Respiratory Pattern Blood Pressure 184/87 H Blood Pressure Mean 119 Pulse Ox 96 Oxygen Delivery Method Room Air Positive well nourished and well developed General Appearance ED: well developed and NAD HEENT Reports TM's clear and moist mucous membranes normocephalic and atraumatic; Negative for trauma or tenderness Tympanic Membrane ED: Yes TM's clear Eyes PERRL and EOMs intact bilaterally General Eye ED: Negative for pale conjunctiva or scleral icterus Neck no lymphadenopathy, supple and no JVD General: Negative for tenderness Chest Wall inspection of chest normal and palpation of chest normal Chest: Negative for tenderness Resp normal respiratory effort and clear to auscultation bilaterally Effort and Inspection: Negative for respiratory distress or pain with movement Auscultation: Negative for rhonchi, wheezes or diminished lung sounds Cardio regular rate, regular rhythm, S1 normal heart sound, S2 normal heart sound and no murmurs Peripheral Pulses: pulses 2+ throughout GI normal to inspection, nondistended, normoactive bowel sounds, soft to palpation, non-tender, non-distended and no masses Back/Spine no CVA tenderness and no thoracic nor lumbar tenderness Extremity normal to inspection General Extremety ED: Negative for edema General Extremity: Negative for edema Neuro oriented x3, CN's II-XII intact bilaterally, no sensory deficits noted and gait normal Sensorium / Orientation: awake, alert, oriented to person, oriented to place and oriented to time Motor Exam: strength 5/5 throughout and strength abnormal Psych mental status grossly normal Skin no rashes or lesions noted and no wounds MDM MDM MDM Narrative Medical decision making narrative: IV line established on arrival. Patient placed on a gambling monitor. Radiologist called and patient was noted to have a subacute and chronic subdural to the left side of the brain with possibly small amount of active bleeding. CT of the C-spine was unremarkable. Case discussed with patient's daughter and will transfer patient for neurosurgical consultation. There were no beds available at any of the [place] or [facility] however [facility] in [place] did accept the patient for transfer. Lab Data Attestation: I reviewed the patient's lab results. Labs: Laboratory Results - last 24 hr 04/18/21 04/18/21 04/18/21 17:43 17:43 17:50 WBC 5.7 RBC 4.29 L Hgb 11.6 L Hct 37.3 L MCV 86.9 MCH 27.0 MCHC 31.1 L RDW Std Deviation 41.8 RDW Coeff of Shakir 13.2 Plt Count 153 MPV 8.7 Immature Gran % (Auto) 0.500 Neut % (Auto) 78.0 H Lymph % (Auto) 15.0 L Walton % (Auto) 5.8 Eos % (Auto) 0.5 Baso % (Auto) 0.2 Absolute Neuts (auto) 4.4 Absolute Lymphs (auto) 0.85 Nucleated RBC % 0 Sodium 140 Potassium 4.2 Chloride 108 H Carbon Dioxide 25.0 Anion Gap 7 BUN 30 H Creatinine 1.70 H Estim Creat Clear Calc 35.21 Est GFR (MDRD) Af Amer 51 L Est GFR (MDRD) Non-Af 42 L BUN/Creatinine Ratio 17.6 Glucose 106 Calcium 8.6 Total Bilirubin 0.40 AST 28 ALT 23 Alkaline Phosphatase 95 Troponin I High Sens 16 Total Protein 7.2 Albumin 3.3 Globulin 3.9 Albumin/Globulin Ratio 0.8 L Ethyl Alcohol < 3.0 Radiography Diagnostic Testing: Radiology Impression Brain CT 04/18/21 17:43 IMPRESSION: Moderate-sized mixed subacute/chronic subdural hematoma in the left cerebral hemisphere without midline shift. Old lacunar infarct in left caudate nucleus Electronically Signed: Rudi Baxter MD at 19:04 EDT , Service support , ADDENDUM: 04/18/21 191 IMPRESSION: Moderate-sized mixed subacute/chronic subdural hematoma in the left cerebral hemisphere without midline shift. Old lacunar infarct in left caudate nucleus N.B. : The above Results were Read Back by Rudi Baxter MD to Dr. Hannah Currie MD, and understanding confirmed on 04/18/2021 19:07:34 (ET). Electronically Signed: Rudi Baxter MD at 19:04 EDT , Service support , Cervical Spine CT 04/18/21 18:22 IMPRESSION: No evidence for acute fracture or subluxation Advanced spondylosis and multilevel spinal stenosis secondary to bony hypertrophy Electronically Signed: Rudi Baxter MD at 19:08 EDT , Service support , EKG Initial EKG: Attestation: I personally reviewed and interpreted this EKG as follows: Comments: Sinus rhythm with a ventricular rate of [address] changes. Critical Care Time Critical care time (excluding procedures): 30-74 minutes, Including time spent:, Discussing w/Patient &/or Family/Inspector [employer] Detail, Discussing w/Consultants, Arranging Admission or Transfer and - (30 minutes) Discharge Plan Triage Chief Complaint: Syncope ED Provider: Hannah Currie Dx/Rx/DC Orders Clinical Impression: Syncope, Fall, Intracranial hemorrhage Prescriptions: No Action amlodipine 10 mg tablet 10 mg PO DAILY Qty: 90 RF: 2 hydrochlorothiazide 12.5 mg capsule 12.5 mg PO DAILY Qty: 90 RF: 3 lisinopril 40 mg tablet 40 mg PO DAILY Qty: 90 RF: 3 (DME) disability placard See Rx Instructions .ROUTE .MEDSUPPLY Qty: 1 RF: 0 Primary Care Provider: Ronald Shine Referrals: Rnoald Shine, [Primary Care Provider] - Disposition Disposition: Transfer to Another Type HCF
[2021-04-18] MEDS: 0.9% Normal Saline 1,000 ML 150 ML IV (17:51)
[2021-04-18 17:58] LABS: Absolute Lymphocyte Count 0.85 X10^3/uL (0.83-4.51); Absolute Neutrophil Count 4.4 X10^3/uL (2.0-7.7); Basophil# 0.01 X10^3/uL; Basophil% 0.2 % (0-1); Eosinophil# 0.03 X10^3/uL; Eosinophils% 0.5 % (0-5); Hematocrit 37.3 % (40-54); Hemoglobin 11.6 g/dL (13.0-16.5); Lymphocyte # 0.85 X10^3/ul (0.83-4.51); Mean Corp Hgb Conc 31.1 g/dL (32-36); Mean Corpuscular Volume 86.9 fL (80-94); Mean Platelet Vol. 8.7 fl (6.2-12.0); Monocyte# 0.33 X10^3/uL; Monocyte% 5.8 % (0-10); NRBC Flagged by Analyzer 0 % (0-5); Neutrophil # 4.42 X10^3/uL (2.7-7.7); Platelet Count 153 K/mm3 (150-450); RBC Distribution Width CV 13.2 % (11.6-14.6); RBC Distribution Width SD 41.8 fl (35.1-43.9); Red Blood Count 4.29 M/mm3 (4.6-6.2); White Blood Count 5.7 K/mm3 (4.4-11.0)
[2021-04-18 18:15] LABS: ALB/GLOB Ratio 0.8 RATIO (0.9-2.4); AST(SGOT) 28 U/L (15-37); Alanine Aminotransfer ALT/SGPT 23 U/L (16-61); Albumin, Serum 3.3 g/dL (3.2-5.0); Alkaline Phosphatase 95 U/L (45-117); Anion Gap 7 (5-15); BUN 30 mg/dL (7-18); BUN/Creat Ratio 17.6 RATIO (10-20); Calcium,Total 8.6 mg/dL (8.5-10.1); Chloride 108 mmol/L (98-107); EST Glomerular Filtration Rate 42 mL/min (>60); Est Glom Filt Rate - Afr Amer 51 mL/min (>60); Estimated Creatinine Clearance 35.21 ml/min; Globulin 3.9 g/dL (2.2-4.2); Glucose 106 mg/dL (74-106); Potassium 4.2 mmol/L (3.5-5.1); Protein, Total 7.2 g/dL (6.4-8.2); Sodium Level 140 mmol/L (136-145); Troponin-I HS 16 pg/mL (3.0-78.0)
--- NOTE | 2021-04-18 18:22 | CT_ITS ---
STUDY: CT CERVICAL SPINE WITHOUT CONTRAST REASON FOR EXAM: Male, 76 years old. fall RADIATION DOSAGE (If Supplied By Facility): CTDIvol = ( 24.00 ) mGy, DLP = ( 474.89 ) mGycm TECHNIQUE: High resolution transaxial imaging was performed without contrast material. Sagittal and coronal images were reconstructed. Individualized dose optimization techniques were used for this CT. COMPARISON: None FINDINGS: Normal craniovertebral junction. Normal anterior atlantoaxial articulation. Normal odontoid process. Normal cervical lordosis. Normal vertebral bodies and posterior osseous elements. C2-3: Normal endplates. Normal disc height and morphology. Normal central canal and intervertebral neuroforamina. C3-4: Minor endplate spurring.. Normal disc height and morphology. Normal central canal. Severe bilateral neuroforaminal stenosis secondary to bony hypertrophy C4-5: Narrowed disc space and endplate spurring. Normal central canal. Severe left neuroforaminal stenosis secondary to bony hypertrophy. C5-6: Narrowed disc space and endplate spurring. Normal central canal. Severe left neuroforaminal stenosis secondary to bony hypertrophy C6-7: Narrowed disc space and endplate spurring. Normal central canal. Severe left neuroforaminal stenosis and moderate narrowing on the right secondary to bony hypertrophy. C7-T1: Normal endplates. Normal disc height and morphology. Normal central canal and intervertebral neuroforamina. Normal visualized soft tissue structures. 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
[2021-04-18 18:30] LABS: Alcohol, Blood (Medical)-Serum < 3.0 mg/dL
[2021-04-18 18:55] VITALS: BP 184/87; PULSE 81; RESP 18; TEMP 36.7; O2SAT 96
[2021-04-18 19:06] VITALS: BP 184/87; PULSE 81; RESP 18; TEMP 36.7; O2SAT 96
[2021-04-18 20:00] VITALS: BP 158/120; PULSE 89; RESP 18; O2SAT 100
== END 2021-04-18 20:41 | disposition other institution (70) ==
PROVIDERS: Emergency Provider Emergency Medicine; PCP Family Medicine
DX: R55 Syncope and collapse (principal); S06.309A Unspecified focal traumatic brain injury with loss of consciousness of unspecified duration, initial encounter; I10 Essential (primary) hypertension; Z87.891 Personal history of nicotine dependence; Z79.899 Other long term (current) drug therapy; Z87.442 Personal history of urinary calculi; W19.XXXA Unspecified fall, initial encounter
CPT/HCPCS: 70450; 72125; 80053; 82077; 84484; 85025; 87426; 93005; 99285